=== PATIENT | male | born 1960 | race American Indian/Alaskan Native ===

== ENCOUNTER 2018-05-15 03:48 | Emergency (ER) | payer MEDICARE ==
[2018-05-15] MEDS ORDERED: LOPRESSOR PO ONE (04:24)
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
[2018-05-15 05:45] VITALS: BP 175/88
== END 2018-05-15 05:47 | disposition home or self-care (01) ==
LOC: ED 03:48
DX: S00.93XA Contusion of unspecified part of head, initial encounter (principal); I10 Essential (primary) hypertension; W22.8XXA Striking against or struck by other objects, initial encounter; Y93.89 Activity, other specified; Y92.89 Other specified places as the place of occurrence of the external cause; Y99.8 Other external cause status

== ENCOUNTER 2019-10-12 01:34 | Emergency (ER) | payer MEDICARE ==
[2019-10-12 01:49] VITALS: BP 166/84
[2019-10-12] MEDS ORDERED: HYDROcodone/ACETAMINOPHEN 7.5-325MG TAB PO ONE (01:54)
[2019-10-12] MEDS ORDERED: IBUPROFEN 800 MG TAB PO ONE (01:54)
[2019-10-12] MEDS ORDERED: COLCHICINE 0.6 MG CAP PO ONE ×2 (01:55→02:55)
--- NOTE | 2019-10-12 02:18 | Emergency Department Report ---
ED Extremity Problem HPI - General Chief complaint: Pain General Stated complaint: FOOT PAIN Time Seen by Provider: 10/12/19 01:41 Source: EMS Mode of arrival: Stretcher Limitations: Physical Limitation - History of Present Illness Initial comments: Patient is a 58-year-old gentleman who is presenting with joint pain. Patient has a history of gout. Is complaining of pain in his right wrist as well as his right ankle. Pain is nontraumatic. Stasis 8 out of 10 in severity hurts worse with touching and movement. Denies fevers chills nausea vomiting diarrhea cough cold congestion that time. Patient states he has no swelling. Severity scale (0 -10): 10 - Related Data Previous Rx's Medication Instructions Recorded Last Taken Type HYDROcodone/APAP 5-325 [[place] 1 each PO Q6HR PRN #16 tablet 06/15/16 Unknown Rx 5/325] Metoprolol [Lopressor TAB] 50 mg PO BID #30 tablet 05/15/18 Unknown Rx HYDROcodone/APAP 5-325 [[place] 1 each PO Q6HR PRN #14 tablet 10/12/19 Unknown Rx 5/325] Ibuprofen [Motrin 800 MG tab] 800 mg PO Q8HR PRN #10 tablet 10/12/19 Unknown Rx Allergies Allergy/AdvReac Type Severity Reaction Status Date / Time clioquinol [From Ala-Ashlee] Allergy Unknown Verified 10/12/19 02:03 hydrocortisone Allergy Unknown Verified 10/12/19 02:03 [From Ala-Ashlee] levofloxacin [From Levaquin] Allergy Unknown Verified 10/12/19 02:03 ED Review of Systems ROS: Stated complaint: FOOT PAIN Other details as noted in HPI Comment: All other systems reviewed and negative ED Past Medical Hx - Past Medical History Previous Medical History?: Yes Hx Hypertension: Yes Hx Arthritis: Yes (gout) Additional medical history: Glaucoma. Cataracts - Surgical History Past Surgical History?: Yes Additional Surgical History: eye sx - Social History Smoking Status: Never Smoker Substance Use Type: Alcohol - Medications Home Medications: Home Medications Medication Instructions Recorded Confirmed Last Taken Type HYDROcodone/APAP 5-325 [[place] 1 each PO Q6HR PRN #16 tablet 06/15/16 Unknown Rx 5/325] Metoprolol [Lopressor TAB] 50 mg PO BID #30 tablet 05/15/18 Unknown Rx HYDROcodone/APAP 5-325 [[place] 1 each PO Q6HR PRN #14 tablet 10/12/19 Unknown Rx 5/325] Ibuprofen [Motrin 800 MG tab] 800 mg PO Q8HR PRN #10 tablet 10/12/19 Unknown Rx ED Physical Exam - General Limitations: Physical Limitation General appearance: alert, in no apparent distress - Head Head exam: Present: atraumatic, normocephalic - Eye Eye exam: Present: normal appearance - ENT ENT exam: Present: mucous membranes moist - Neck Neck exam: Present: normal inspection - Respiratory Respiratory exam: Absent: respiratory distress - GI/Abdominal GI/Abdominal exam: Absent: distended - Rectal Rectal exam: Present: deferred - Extremities Exam Extremities exam: Present: normal inspection - Expanded Upper Extremity Exam Right Shoulder Exam: Present: normal inspection Upper Arm exam: Present: normal inspection Elbow exam: Present: normal inspection, full ROM Forearm Wrist exam: Present: tenderness, swelling (generalized at wrist). Absent: deformity, erythema (mild warmth) - Expanded Lower Extremity Exam Right Ankle exam: Present: full ROM, tenderness, swelling (generalized ankle) - Back Exam Back exam: Present: normal inspection - Neurological Exam Neurological exam: Present: alert, oriented X3 - Psychiatric Psychiatric exam: Present: normal affect, normal mood - Skin Skin exam: Present: warm, dry, intact, normal color. Absent: rash ED Course Vital Signs 10/12/19 10/12/19 10/12/19 01:47 02:00 02:02 Temperature 98.6 F Pulse Rate 74 Respiratory 16 16 16 Rate Blood Pressure 166/84 Blood Pressure 166/84 [Left] O2 Sat by Pulse 96 Oximetry ED Medical Decision Making - Medical Decision Making Patient given 2 doses of colchicine to treat acute gouty arthritis. The patient be discharged home. Critical care attestation.: If time is entered above; I have spent that time in minutes in the direct care of this critically ill patient, excluding procedure time. ED Disposition Clinical Impression: Acute gouty arthritis Disposition: TO HOME OR SELFCARE Is pt being admited?: No Does the pt Need Aspirin: No Condition: Stable Instructions: Acute Gouty Arthritis (ED) Referrals: ANGEL HAQUE MD [Staff Physician] - 3-5 Days Time of Disposition: 02:32
== END 2019-10-12 03:11 | disposition home or self-care (01) ==
LOC: ED 01:34
DX: M10.9 Gout, unspecified (principal); I10 Essential (primary) hypertension; F10.10 Alcohol abuse, uncomplicated; Z79.899 Other long term (current) drug therapy; Z88.8 Allergy status to other drugs, medicaments and biological substances

== ENCOUNTER 2021-04-04 03:36 | Emergency (ER) | payer MEDICARE ==
[2021-04-04 04:23] VITALS: BP 198/105
--- NOTE | 2021-04-04 07:19 | Emergency Department Report ---
ED General Adult HPI - General Chief complaint: Extremity Injury, Lower Stated complaint: BILATERAL FOOT PAIN Time Seen by Provider: 04/04/21 07:00 Source: EMS Mode of arrival: Ambulatory Limitations: No Limitations - Related Data Previous Rx's Medication Instructions Recorded Last Taken Type HYDROcodone/APAP 5-325 [[place] 1 each PO Q6HR PRN #16 tablet 06/15/16 Unknown Rx 5/325] Metoprolol [Lopressor TAB] 50 mg PO BID #30 tablet 05/15/18 Unknown Rx HYDROcodone/APAP 5-325 [[place] 1 each PO Q6HR PRN #14 tablet 10/12/19 Unknown Rx 5/325] Ibuprofen [Motrin 800 MG tab] 800 mg PO Q8HR PRN #10 tablet 10/12/19 Unknown Rx Allergies Allergy/AdvReac Type Severity Reaction Status Date / Time clioquinol [From Ala-Ashlee] Allergy Unknown Verified 10/12/19 02:03 hydrocortisone Allergy Unknown Verified 10/12/19 02:03 [From Ala-Ashlee] levofloxacin [From Levaquin] Allergy Unknown Verified 10/12/19 02:03 ED Review of Systems ROS: Stated complaint: BILATERAL FOOT PAIN Other details as noted in HPI ED Past Medical Hx - Past Medical History Hx Hypertension: Yes Hx Arthritis: Yes (gout) Additional medical history: Glaucoma. Cataracts - Surgical History Additional Surgical History: eye sx - Social History Smoking Status: Never Smoker - Medications Home Medications: Home Medications Medication Instructions Recorded Confirmed Last Taken Type HYDROcodone/APAP 5-325 [[place] 1 each PO Q6HR PRN #16 tablet 06/15/16 Unknown Rx 5/325] Metoprolol [Lopressor TAB] 50 mg PO BID #30 tablet 05/15/18 Unknown Rx HYDROcodone/APAP 5-325 [[place] 1 each PO Q6HR PRN #14 tablet 10/12/19 Unknown Rx 5/325] Ibuprofen [Motrin 800 MG tab] 800 mg PO Q8HR PRN #10 tablet 10/12/19 Unknown Rx ED Physical Exam - General Limitations: No Limitations ED Course Vital Signs 04/04/21 04:22 Temperature 98.5 F Pulse Rate 85 Respiratory 18 Rate Blood Pressure 198/105 O2 Sat by Pulse 97 Oximetry Critical care attestation.: If time is entered above; I have spent that time in minutes in the direct care of this critically ill patient, excluding procedure time. ED Disposition Condition: Stable Referrals: PRIMARY CARE,MD [Primary Care Provider] - 3-5 Days
--- NOTE | 2021-04-04 07:29 | Emergency Department Report ---
ED Extremity Problem HPI - General Chief complaint: Extremity Injury, Lower Stated complaint: BILATERAL FOOT PAIN Time Seen by Provider: 04/04/21 07:00 Source: EMS Mode of arrival: Ambulatory Limitations: No Limitations - History of Present Illness Initial comments: 60-year-old -[place] male that is morbid obese presents to the emergency room for bilateral foot pain and hand pain x3 days. Patient states he feels like his gout is acting up. Patient denies any injury. Patient reports he has a history of gout and hypertension. Patient asking for blood pressure medication refill but does not know his medication. Patient states he gets his medicines from the emergency room last prescription was for [facility] per patient. MD Complaint: joint swelling, joint paint Onset/Timin -: days(s) Location: left, right ( PIP of the first digit), toe (Great toe) History of Same: Yes -: Yes arthralgia Radiation: none Severity scale (0 -10): 9 Quality: stabbing, aching, sharp Consistency: constant Improves with: nothing Worsens with: weight bearing, walking, palpation Associated Symptoms: denies other symptoms - Related Data Previous Rx's Medication Instructions Recorded Last Taken Type HYDROcodone/APAP 5-325 [[place] 1 each PO Q6HR PRN #16 tablet 06/15/16 Unknown Rx 5/325] Metoprolol [Lopressor TAB] 50 mg PO BID #30 tablet 05/15/18 Unknown Rx HYDROcodone/APAP 5-325 [[place] 1 each PO Q6HR PRN #14 tablet 10/12/19 Unknown Rx 5/325] Colchicine 0.6 mg PO Q8H PRN #6 tablet 04/04/21 Unknown Rx Ibuprofen [Motrin 800 MG tab] 800 mg PO Q8HR PRN #10 tablet 04/04/21 Unknown Rx amLODIPine 5 mg PO DAILY #30 tab 04/04/21 Unknown Rx traMADoL [Ultram 50 MG tab] 50 mg PO Q4HR PRN #15 tablet 04/04/21 Unknown Rx Allergies Allergy/AdvReac Type Severity Reaction Status Date / Time clioquinol [From Ala-Ashlee] Allergy Unknown Verified 10/12/19 02:03 hydrocortisone Allergy Unknown Verified 10/12/19 02:03 [From Ala-Ashlee] levofloxacin [From Levaquin] Allergy Unknown Verified 10/12/19 02:03 ED Review of Systems ROS: Stated complaint: BILATERAL FOOT PAIN Other details as noted in HPI Comment: All other systems reviewed and negative ED Past Medical Hx - Past Medical History Hx Hypertension: Yes Hx Arthritis: Yes (gout) Additional medical history: Glaucoma. Cataracts - Surgical History Additional Surgical History: eye sx - Social History Smoking Status: Never Smoker - Medications Home Medications: Home Medications Medication Instructions Recorded Confirmed Last Taken Type HYDROcodone/APAP 5-325 [[place] 1 each PO Q6HR PRN #16 tablet 06/15/16 Unknown Rx 5/325] Metoprolol [Lopressor TAB] 50 mg PO BID #30 tablet 05/15/18 Unknown Rx HYDROcodone/APAP 5-325 [[place] 1 each PO Q6HR PRN #14 tablet 10/12/19 Unknown Rx 5/325] Colchicine 0.6 mg PO Q8H PRN #6 tablet 04/04/21 Unknown Rx Ibuprofen [Motrin 800 MG tab] 800 mg PO Q8HR PRN #10 tablet 04/04/21 Unknown Rx amLODIPine 5 mg PO DAILY #30 tab 04/04/21 Unknown Rx traMADoL [Ultram 50 MG tab] 50 mg PO Q4HR PRN #15 tablet 04/04/21 Unknown Rx ED Physical Exam - General Limitations: No Limitations General appearance: alert, in no apparent distress - Head Head exam: Present: atraumatic, normocephalic - Eye Eye exam: Present: normal appearance - ENT ENT exam: Present: mucous membranes moist - Neck Neck exam: Present: normal inspection, full ROM - Respiratory Respiratory exam: Absent: accessory muscle use - Cardiovascular Cardiovascular Exam: Present: regular rate - Expanded Upper Extremity Exam Right Shoulder Exam: Present: normal inspection Upper Arm exam: Present: normal inspection Elbow exam: Present: normal inspection Forearm Wrist exam: Present: normal inspection. Absent: tenderness Hand Wrist exam: Present: full ROM, tenderness, swelling, erythema Vascular: Present: normal capillary refill - Back Exam Back exam: Present: normal inspection - Neurological Exam Neurological exam: Present: alert, oriented X3 - Psychiatric Psychiatric exam: Present: normal affect, normal mood - Skin Skin exam: Present: warm, dry, intact, normal color. Absent: rash ED Course Vital Signs 04/04/21 04:22 Temperature 98.5 F Pulse Rate 85 Respiratory 18 Rate Blood Pressure 198/105 O2 Sat by Pulse 97 Oximetry ED Medical Decision Making - Lab Data Result diagrams: 04/04/21 07:33 04/04/21 07:33 - Medical Decision Making 60-year-old -[place] male that is morbid obese presents to the emergency room for bilateral foot pain and hand pain x3 days. Patient states he feels like his gout is acting up. Patient denies any injury. Patient reports he has a history of gout and hypertension. Patient asking for blood pressure medication refill but does not know his medication. Patient states he gets his medicines from the emergency room last prescription was for [facility] per mohini gold. Basic labs have been ordered since patient has no labs in our system. Before giving patient a steroid injection and colchicine would like to see his kidney function and his glucose. They are within normal limits patient be given a cocktail of colchicine 1.2 mg, dexamethasone 10 mg IM and Percocet 5/325. Patient will be discharged with the referral to primary care provider. I will treat patient's blood pressure with amlodipine 5 mg daily for 30-day dispense and no refills as I discussed with patient this is needs to be followed up with a primary care provider. Patient verbalized understanding Critical care attestation.: If time is entered above; I have spent that time in minutes in the direct care of this critically ill patient, excluding procedure time. ED Disposition Clinical Impression: Gout attack Qualifiers: Gout site: toe Gout etiology: unspecified cause Laterality: left Qualified Code(s): M10.9 - Gout, unspecified Gout Qualifiers: Gout site: hand Gout etiology: unspecified cause Chronicity: acute Laterality: right Qualified Code(s): M10.9 - Gout, unspecified Disposition: - TO HOME OR SELFCARE Is pt being admited?: No Does the pt Need Aspirin: No Condition: Stable Additional Instructions: Please take medications as prescribed. Do not operate heavy machinery while taking tramadol. It is very important for you to increase your fluid intake. Avoid alcohol beverages seafood red meat and wine. Please take your blood pressure medicine as prescribed. It is very important you follow-up with a primary care provider in the next 7 days. I have listed several below for your convenience. Prescriptions: amLODIPine 5 mg PO DAILY #30 tab Colchicine 0.6 mg PO Q8H PRN #6 tablet PRN Reason: Pain , Severe (7-10) Ibuprofen [Motrin 800 MG tab] 800 mg PO Q8HR PRN #10 tablet PRN Reason: Pain , Severe (7-10) traMADoL [Ultram 50 MG tab] 50 mg PO Q4HR PRN #15 tablet PRN Reason: Pain Referrals: PRIMARY CARE, [Primary Care Provider] - 3-5 Days IVETTE RUSSELL MD [Staff Physician] - 3-5 Days IDA QUESADA MD [Staff Physician] - 3-5 Days ANGEL HAQUE MD [Staff Physician] - 3-5 Days Time of Disposition: 08:34
[2021-04-04 07:51] LABS: Basophils # (Auto) 0.1 K/mm3 (0.0-0.1); Basophils % (Auto) 0.7 % (0.0-1.8); Eosinophils # (Auto) 0.1 K/mm3 (0.0-0.4); Hematocrit 39.1 % (35.5-45.6); Hemoglobin 12.8 gm/dl (11.8-15.2); Lymphocytes # (Auto) 1.2 K/mm3 (1.2-5.4); Lymphocytes % (Auto) 17.3 % (13.4-35.0); Mean Corpuscular HGB Conc 33 % (32-34); Mean Corpuscular Volume 87 fl (84-94); Monocytes # (Auto) 0.8 K/mm3 (0.0-0.8); Monocytes % (Auto) 11.8 % (0.0-7.3); Platelet Count 135 K/mm3 (140-440); Red Blood Count 4.49 M/mm3 (3.65-5.03); Red Cell Distribution Width 14.2 % (13.2-15.2)
[2021-04-04 08:13] LABS: Alanine Aminotransferase 12 units/L (7-56); Albumin 3.7 g/dL (3.9-5); BUN/Creatinine Ratio 11; Blood Urea Nitrogen 13 mg/dL (9-20); Calcium 8.5 mg/dL (8.4-10.2); Hemolysis Index 68
[2021-04-04] MEDS ORDERED: KETOROLAC 30 MG/1 ML INJ IM ONE (08:25)
[2021-04-04] MEDS ORDERED: oxyCODONE /ACETAMINOPHEN 5-325MG TAB PO ONE (08:25)
[2021-04-04] MEDS ORDERED: COLCHICINE 0.6 MG TAB PO ONE (09:00)
== END 2021-04-04 11:10 | disposition home or self-care (01) ==
LOC: ED 03:36
DX: M10.9 Gout, unspecified (principal); I10 Essential (primary) hypertension; M19.91 Primary osteoarthritis, unspecified site; Z98.890 Other specified postprocedural states; Z79.1 Long term (current) use of non-steroidal anti-inflammatories (NSAID); Z79.899 Other long term (current) drug therapy; Z88.8 Allergy status to other drugs, medicaments and biological substances
CPT/HCPCS: 36415; 80053; 85025; 96372; 99283; J1885

== ENCOUNTER 2022-01-30 03:56 | Emergency (ER) | payer MEDICARE ==
[2022-01-30] MEDS ORDERED: diphenhydrAMINE 25 MG CAP PO ONE (08:41)
[2022-01-30] MEDS ORDERED: HYDROcodone/ACETAMINOPHEN 5-325 MG TAB PO ONE (08:41)
[2022-01-30] MEDS ORDERED: dexAMETHasone 4 MG/ML VIAL IM ONE (08:41)
[2022-01-30] MEDS ORDERED: IBUPROFEN 800 MG TAB PO ONE (08:41)
[2022-01-30] MEDS ORDERED: FAMOTIDINE 20 MG TAB PO ONE (08:41)
--- NOTE | 2022-01-30 08:42 | Emergency Department Report ---
ED General Adult HPI - General Stated complaint: GOUT FLAIR UP PUI?: No Time Seen by Provider: 01/30/22 08:23 Source: patient Mode of arrival: Ambulatory Limitations: No Limitations, Other - History of Present Illness Initial comments: Patient is a 61-year-old male that comes to the ER complaining of severe right hand pain. He denies any trauma. He reports a history of gout. He states his pain is consistent with his gout pain. He does not take any medicines at home for gout. Patient is neurovascularly intact. He is ambulatory to fast track in no acute distress. Patient denies chest pain or shortness of breath. Patient denies fever or chills. -: Gradual (Side impairment), days(s) Location: upper extremity Severity scale (0 -10): 10 Quality: burning, aching Consistency: constant Improves with: none Worsens with: none Associated Symptoms: denies other symptoms Treatments Prior to Arrival: none - Related Data Previous Rx's Medication Instructions Recorded Last Taken Type Metoprolol [Lopressor TAB] 50 mg PO BID #30 tablet 05/15/18 1 Day Ago Rx ~01/29/22 amLODIPine 5 mg PO DAILY #30 tab 04/04/21 1 Day Ago Rx ~01/29/22 Colchicine 0.6 mg PO DAILY #11 01/30/22 Unknown Rx Ibuprofen [Motrin] 800 mg PO Q8HR PRN #30 tablet 01/30/22 Unknown Rx predniSONE [Deltasone] 20 mg PO DAILY #5 tablet 01/30/22 Unknown Rx Allergies Allergy/AdvReac Type Severity Reaction Status Date / Time clioquinol [From Ala-Ashlee] Allergy Unknown Verified 01/30/22 08:31 hydrocortisone Allergy Unknown Verified 01/30/22 08:31 [From Ala-Ashlee] levofloxacin [From Levaquin] Allergy Unknown Verified 01/30/22 08:31 ED Review of Systems ROS: Stated complaint: GOUT FLAIR UP Other details as noted in HPI Comment: All other systems reviewed and negative ED Past Medical Hx - Past Medical History Previous Medical History?: Yes Hx Hypertension: Yes Hx Arthritis: Yes (gout) Additional medical history: Glaucoma. Cataracts - Surgical History Past Surgical History?: Yes Additional Surgical History: eye sx - Family History Family history: no significant - Social History Smoking Status: Never Smoker Substance Use Type: None - Medications Home Medications: Home Medications Medication Instructions Recorded Confirmed Last Taken Type Metoprolol [Lopressor TAB] 50 mg PO BID #30 tablet 05/15/18 01/30/22 1 Day Ago Rx ~01/29/22 amLODIPine 5 mg PO DAILY #30 tab 04/04/21 01/30/22 1 Day Ago Rx ~01/29/22 Colchicine 0.6 mg PO DAILY #11 01/30/22 Unknown Rx Ibuprofen [Motrin] 800 mg PO Q8HR PRN #30 tablet 01/30/22 Unknown Rx predniSONE [Deltasone] 20 mg PO DAILY #5 tablet 01/30/22 Unknown Rx ED Physical Exam - General General appearance: alert, in no apparent distress - Head Head exam: Present: atraumatic, normocephalic - Eye Eye exam: Present: normal appearance - ENT ENT exam: Present: mucous membranes moist - Neck Neck exam: Present: normal inspection - Respiratory Respiratory exam: Present: normal lung sounds bilaterally. Absent: respiratory distress - Cardiovascular Cardiovascular Exam: Present: regular rate, normal rhythm. Absent: systolic murmur, diastolic murmur, rubs, gallop - GI/Abdominal GI/Abdominal exam: Present: soft, normal bowel sounds - Rectal Rectal exam: Present: deferred - Extremities Exam Extremities exam: Present: normal inspection - Expanded Upper Extremity Exam Right Elbow exam: Present: normal inspection Forearm Wrist exam: Present: normal inspection Hand Wrist exam: Present: tenderness, swelling, ecchymosis - Back Exam Back exam: Present: normal inspection - Neurological Exam Neurological exam: Present: alert, oriented X3 - Psychiatric Psychiatric exam: Present: normal affect, normal mood - Skin Skin exam: Present: warm, dry, intact, normal color. Absent: rash ED Course Vital Signs 01/30/22 01/30/22 01/30/22 08:37 09:00 09:01 Temperature 98.2 F Pulse Rate 70 Respiratory 18 18 18 Rate O2 Sat by Pulse 98 Oximetry ED Medical Decision Making - Medical Decision Making Vital Signs 01/30/22 01/30/22 01/30/22 08:37 09:00 09:01 Temperature 98.2 F Pulse Rate 70 Respiratory 18 18 18 Rate O2 Sat by Pulse 98 Oximetry Blood pressure 150/90 is manually documented by RN. Patient on amlodipine and metoprolol for his blood pressure at home. Patient denies any trauma. He does have acute on chronic gout. He is on no medications currently for his gout. Medicated with Decadron, Motrin while here in the ER. Patient is neurovascularly intact. Ulnar and radial nerve intact. Radial and ulnar pulses intact. Rapid cap refill. Patient being discharged home with discharge plan of care. He verbalizes understanding of discharge plan including diet, activity, medication and follow- up. - Differential Diagnosis Acute on chronic gout Critical care attestation.: If time is entered above; I have spent that time in minutes in the direct care of this critically ill patient, excluding procedure time. ED Disposition Clinical Impression: Gout Qualifiers: Gout site: unspecified site Encounter type: initial encounter Chronicity: acute Disposition: HOME / SELF CARE / HOMELESS Is pt being admited?: No Does the pt Need Aspirin: No Condition: Stable Instructions: Low-Purine Eating Plan Additional Instructions: Medication as ordered today See attached information on diet Avoid alcohol and red meats Follow-up with PCP in 48 hours referral below Prescriptions: Colchicine 0.6 mg PO DAILY #11 predniSONE [Deltasone] 20 mg PO DAILY #5 tablet Ibuprofen [Motrin] 800 mg PO Q8HR PRN #30 tablet PRN Reason: Pain, Moderate (4-6) Referrals: ANGEL HAQUE MD [Primary Care Provider] - 3-5 Days Time of Disposition: 09:57
== END 2022-01-30 10:17 | disposition home or self-care (01) ==
LOC: ED 03:56
DX: M10.9 Gout, unspecified (principal); Z88.1 Allergy status to other antibiotic agents; I10 Essential (primary) hypertension; Z88.8 Allergy status to other drugs, medicaments and biological substances
CPT/HCPCS: 96372; 99283; J1100